=== PATIENT | male | born 1960 | race Caucasian/White ===

== ENCOUNTER 2018-07-12 20:21 | Emergency (ER) | payer BC ==
[~2018-07-12] VITALS: Ht 185.4 cm; Wt 105.0 kg
[2018-07-12 20:26] VITALS: BP 157/96
[2018-07-12] MEDS ORDERED: PENI250T2 PO (20:59)
[2018-07-12] MEDS ORDERED: NAPR-56 PO (20:59)
[2018-07-12] MEDS ORDERED: HYDROcodone/acetaminophen 10/325mg tab PO ONE (21:00)
== END 2018-07-12 21:19 | disposition home or self-care (01) ==
LOC: ER 20:22
DX: K08.89 Other specified disorders of teeth and supporting structures (principal); Z88.4 Allergy status to anesthetic agent
CPT/HCPCS: 99283

== ENCOUNTER 2024-01-18 14:48 | Emergency (ER) | payer BC ==
[~2024-01-18] VITALS: Ht 185.4 cm; Wt 102.6 kg
[2024-01-18] MEDS ORDERED: epiNEPHrine inj 0.3 MG in LIDOcaine 1% 30ml vial 29.7 ML IJ ONE (15:45)
[2024-01-18] MEDS ORDERED: LIDOcaine 1% 30ml preserv. free vial SQ STA (15:47)
[2024-01-18] MEDS: LIDOcaine 1% W/epiNEPHrine 1:100,000 20ml vial IJ ONE (15:58)
[2024-01-18] MEDS: silver sulfadiazine cream 50gm TP ONE (16:39)
[2024-01-18 16:42] VITALS: BP 170/90; PULSE 89; RESP 16; TEMP 98.2; O2SAT 99
== END 2024-01-18 16:38 | disposition home or self-care (01) ==
LOC: ER 14:49
DX: S81.811A Laceration without foreign body, right lower leg, initial encounter (principal); T24.001A Burn of unspecified degree of unspecified site of right lower limb, except ankle and foot, initial encounter; Z88.4 Allergy status to anesthetic agent; X58.XXXA Exposure to other specified factors, initial encounter; Y93.89 Activity, other specified; Y92.89 Other specified places as the place of occurrence of the external cause; Y99.8 Other external cause status; X08.8XXA Exposure to other specified smoke, fire and flames, initial encounter
CPT/HCPCS: 12001; 16000; 99283; J3490

== ENCOUNTER 2024-01-26 17:12 | Emergency (ER) | payer BC ==
[~2024-01-26] VITALS: Ht 185.4 cm; Wt 102.7 kg
[2024-01-26 17:14] VITALS: TEMP 97.5
[2024-01-26 18:08] VITALS: BP 163/67; PULSE 78; RESP 16; O2SAT 98
== END 2024-01-26 18:09 | disposition home or self-care (01) ==
LOC: ER 17:13
DX: S81.811D Laceration without foreign body, right lower leg, subsequent encounter (principal); X58.XXXD Exposure to other specified factors, subsequent encounter; Z20.822 Contact with and (suspected) exposure to COVID-19
CPT/HCPCS: 36415; 87811; 99283

== ENCOUNTER 2024-04-11 16:41 | Emergency (ER) | payer BC, MEDICAID ==
[~2024-04-11] VITALS: Ht 185.4 cm; Wt 104.0 kg
[2024-04-11 16:51] VITALS: BP 174/90; PULSE 101; RESP 16; O2SAT 97
[2024-04-11 21:02] VITALS: TEMP 98.2
== END 2024-04-11 21:09 | disposition home or self-care (01) ==
LOC: ER 16:42
DX: T38.3X1A Poisoning by insulin and oral hypoglycemic [antidiabetic] drugs, accidental (unintentional), initial encounter (principal); E11.9 Type 2 diabetes mellitus without complications; R42 Dizziness and giddiness; Z88.7 Allergy status to serum and vaccine; Z79.4 Long term (current) use of insulin; Y92.89 Other specified places as the place of occurrence of the external cause
CPT/HCPCS: 82948; 99282

== ENCOUNTER 2024-07-24 12:35 | Emergency (ER) | payer BC, MEDICAID ==
[~2024-07-24] VITALS: Ht 175.3 cm; Wt 81.6 kg
[2024-07-24 13:06] VITALS: BP 161/103; PULSE 84; TEMP 97.8; O2SAT 98
[2024-07-24 14:09] VITALS: RESP 18
[2024-07-24] MEDS: ketorolac trometh 15mg/ml vial 15 MG/ML ML IM ONE (14:09)
[2024-07-24] MEDS ORDERED: ACET-2119 PO (14:14)
[2024-07-24] MEDS ORDERED: NAPR-56 PO (14:14)
== END 2024-07-24 14:33 | disposition home or self-care (01) ==
LOC: ER 12:36
DX: M79.644 Pain in right finger(s) (principal); E11.9 Type 2 diabetes mellitus without complications; Z79.899 Other long term (current) drug therapy
CPT/HCPCS: 96372; 99283; J1885